=== PATIENT | female | born 1955 | race African-American/Black ===

== ENCOUNTER → 2016-09-07 | Day surgery (SDC) | payer MEDICARE ==
[~2016-09-07] MED LIST: AMARYL; AMARYL PO; AMLODIPINE BESYL5 MG; AMLODIPINE BESYL5 MG PO; ASPIRIN81 M1 PO; BROM-PSEUD-DM118 ML PO; CALCIUM500 MG PO; CARVEDILOL25 MG PO; COREG12.5 MG PO; DIOVAN PO; ECOTRIN325 MG PO; EXFORGE 10-1601 TAB; FLEXERIL10 MG PO; GABAPENTIN300 MG; HYDROCHLOROTHIA25 MG PO; KLOR-CON PO; LEVEMIR100 UNITS/ SUBQ; LORTAB 5/500 TA1 TA1 PO; LOSARTAN POTASS50 MG PO; METFORMIN HCL500 M1 PO; METHADOSE5 MG; MULTI-DAY VITAM1 TAB PO; NAPROSYN500 MG PO; NORVASC PO; NOVOLOG FL100 UNIT/1 SUBQ; NOVOLOG100 U/M1 SUBQ; NOVOLOG100 U/ML SUBQ; ONGLYZA5 MG; VOLTAREN75 MG PO
--- NOTE | ~2016-09-07 | OR ---
Unit #: [id number] #: [id number] Patient: JUAN CARREON [id number] [address] [address] [id number] O MR#: [id number] NAME: JUAN CARREON ROOM: Date of Procedure: 09/07/2016 Admission Date: 09/07/2016 Surgeon: Fran Herrera M.D. : 1955 Attending Physician: Fran Herrera M.D. Primary Care Physician: [facility] PROCEDURE OPERATIVE NOTE PROCEDURE PERFORMED EGD with biopsy. INDICATION Epigastric pain, chronic GERD symptoms, undergoing evaluation with upper endoscopy. MEDICATION Monitored anesthesia. POSTOP FINDINGS 1. Normal esophagus. 2. Multiple gastric erosions along with gastritis. Biopsies taken. 3. Normal duodenum and distal duodenum. PLAN PPI therapy, avoid NSAIDs. Further recommendations to follow. DESCRIPTION OF PROCEDURE The patient was explained the procedure, risks and benefits, along with the risks and benefits of anesthesia. She was brought to the endoscopy room. Propofol anesthesia was given. A bite block was placed. The scope was passed down the mouth into the esophagus, stomach, duodenum and distal duodenum. Findings as described. Biopsies taken. Gently I pulled the scope out of the patient's mouth. She tolerated it well. Dictated by... Shahram Apodaca/meek TD: 09/07/2016 11:38 JOB #: [id number] Unit #: [id number] #: [id number] Patient: JUAN CARREON PROCEDURE OPERATIVE NOTE Page 1 of 1 X Fran Herrera MD X PROCEDURE OPERATIVE NOTE
== END | disposition home or self-care (01) ==
LOC: COPS 06:32
DX: K29.50 Unspecified chronic gastritis without bleeding (principal); E11.9 Type 2 diabetes mellitus without complications; I10 Essential (primary) hypertension; Z87.442 Personal history of urinary calculi; Z87.19 Personal history of other diseases of the digestive system; Z88.0 Allergy status to penicillin; Z88.5 Allergy status to narcotic agent; Z91.018 Allergy to other foods; Z91.048 Other nonmedicinal substance allergy status; Z79.4 Long term (current) use of insulin; Z79.899 Other long term (current) drug therapy; Z90.49 Acquired absence of other specified parts of digestive tract; Z90.710 Acquired absence of both cervix and uterus
CPT/HCPCS: 82947; 88305; 88312; J2250

== ENCOUNTER → 2016-11-01 | Outpatient (CLI) | payer MEDICARE ==
--- NOTE | ~2016-11-01 | CT2 ---
[facility] A Service of [facility] RADIOLOGY TEXT RESULTS PATIENT: JUNA CARREON LOCATION: CCAT : 57 UNIT #: [id number] AGE: [address]: Fran Herrera MD SEX: F ORDER DR: [id number] [facility] [address]. [place], [place] [address] [id number] O MR#: [id number] Acc #: [id number] NAME: JUAN CARREON : 1955 SEX: F STUDY DATE/TIME: 11/01/2016 11:36 UNIT: CCAT ROOM: STUDY DESCRIPTION: CT Abd and Pelv W Cont Attending Physician: Fran Herrera M.D. Referring Physician: Fran Herrera M.D. Ordering Physician: Fran Herrera M.D. Primary Care Physician: [facility] MEDICAL IMAGING REPORT This report is preliminary unless electronic signature is present EXAM CT abdomen and pelvis with contrast INDICATIONS Epigastric abdominal pain for the past 6 months. PROCEDURE Contrast-enhanced CT of the abdomen and pelvis This CT exam was performed with one or more of the following radiation dose reduction techniques: automatic exposure control, adjustment of mA and/or kV according to patient size, and iterative reconstruction. COMPARISON 01/11/2012 FINDINGS ABDOMEN WITH CONTRAST: Included lung bases are clear. Liver, spleen unremarkable. Areas of cortical scarring in the right kidney. Adrenal glands, pancreas unremarkable. Previous cholecystectomy. The bowel loops are nondilated. PELVIS WITH CONTRAST: Previous hysterectomy. No pelvic mass. No aggressive appearing bone lesion. IMPRESSION 1. No clearly acute findings in the abdomen or pelvis. 2. Previous cholecystectomy. 3. Areas of cortical scarring in the right kidney. Dictated by... Soto Farmer M.D. [facility] A Service [facility] RADIOLOGY TEXT RESULTS PATIENT: JUAN CARREON LOCATION: CCAT : 57 UNIT #: [id number] AGE: [address]: Fran Herrera MD SEX: F ORDER DR: THIS IS AN ELECTRONICALLY VERIFIED REPORT Soto Farmer M.D. at 11/03/2016 9:56 PM Iva TD: 11/01/2016 15:33 JOB #: [id number] MEDICAL IMAGING REPORT Page 1 of 1 COPY
[2016-11-01 10:46] LABS: HEMATOCRIT 36.5 % (35.0-45.0); HEMOGLOBIN 11.9 gm/dL (12.0-16.0); MEAN CELL VOLUME 85.1 FL (83-96); MEAN CORPUSCULAR HEMOGLOBIN 27.7 PG (28-34); MEAN CORPUSCULAR HGB CONC 32.5 g/dL (30-36); MEAN PLATELET VOLUME 7.6 FL (6.5-11.5); RED BLOOD COUNT 4.29 X10e (3.90-5.30); WHITE BLOOD COUNT 6.3 X10e3 (4.0-10.5)
[2016-11-01 11:12] LABS: ALBUMIN SERUM 4.2 g/dL (3.5-5.0); BILIRUBIN,TOTAL 0.8 mg/dL (0.2-2.0); CALCIUM SERUM 9.3 mg/dL (8.4-10.2); GLOM FILT RATE Estimated 70.9 mL/min (>60); POTASSIUM 3.8 mmol/L (3.5-5.1); PROTEIN TOTAL SERUM 8.1 g/dL (6.0-8.3)
[2016-11-01 15:11] LABS: POC - CREATININE 1.17 mg/dL (0.44-1.03); POC - GFR >60.0 mL/min (>60)
[2016-11-05 15:19] LABS: GLIADIN IGA AB 9 Units (<20); GLIADIN IGG AB 6 Units (<20); RETICULIN IGA SCREEN W/REFLEX Negative (Negative); TISSUE TRANSGLUTAMINASE IGA AB 1 U/mL (<4)
== END | disposition home or self-care (01) ==
LOC: CCAT 09:08
PROVIDERS: Internal Medicine
DX: R10.13 Epigastric pain (principal); N28.89 Other specified disorders of kidney and ureter; Z90.49 Acquired absence of other specified parts of digestive tract
CPT/HCPCS: 36415; 74177; 80048; 80053; 81003; 82150; 82565; 82570; 83516; 83690; 84156; 84443; 85027; 86255; Q9967

== ENCOUNTER → 2016-11-01 | Outpatient (CLI) | payer MEDICARE ==
[2016-11-01 15:11] LABS: GLOM FILT RATE Estimated 70.9 mL/min (>60); POTASSIUM 3.8 mmol/L (3.5-5.1)
[2016-11-01 15:12] LABS: CALCIUM SERUM 9.3 mg/dL (8.4-10.2); HEMATOCRIT 36.5 % (35.0-45.0); HEMOGLOBIN 11.9 gm/dL (12.0-16.0); MEAN CELL VOLUME 85.1 FL (83-96); MEAN CORPUSCULAR HEMOGLOBIN 27.7 PG (28-34); RED BLOOD COUNT 4.29 X10e (3.90-5.30); WHITE BLOOD COUNT 6.3 X10e3 (4.0-10.5)
[2016-11-01 15:13] LABS: MEAN CORPUSCULAR HGB CONC 32.5 g/dL (30-36); MEAN PLATELET VOLUME 7.6 FL (6.5-11.5)
[2016-11-01 15:29] LABS: CREATININE,RANDOM URINE 67 mg/dL; TOTAL PROTEIN,RANDOM URINE <10 mg/dl (<10)
[2016-11-01 15:33] LABS: URINE APPEARANCE CLEAR; URINE BILIRUBIN NEG (NEG); URINE BLOOD NEG (NEG); URINE COLOR YELLOW; URINE GLUCOSE NEG (NEG); URINE KETONE NEG (NEG); URINE LEUKOCYTE ESTERASE NEG (NEG); URINE NITRATE NEG (NEG); URINE PROTEIN NEG (NEG); URINE SPECIFIC GRAVITY 1.041 (1.003-1.035)
== END | disposition home or self-care (01) ==
LOC: CLAB 14:37
PROVIDERS: Internal Medicine Nephrology
DX: N18.3 Chronic kidney disease, stage 3 (moderate) (principal)
CPT/HCPCS: 36415; 80048; 81003; 82570; 84156; 85027